=== PATIENT | female | born 1990 ===

== ENCOUNTER 2019-02-24 14:08 | Emergency (ER) | payer OTHER ==
[~2019-02-24] VITALS: Ht 157.5 cm; Wt 61.2 kg
[~2019-02-24 14:08] MED LIST: KAITLIB FE CHE1 EACH
== END 2019-02-24 20:40 | disposition home or self-care (01) ==
LOC: ER 14:08
DX: M54.5 Low back pain (principal)

== ENCOUNTER 2019-07-19 08:41 | Emergency (ER) | payer OTHER ==
[~2019-07-19] VITALS: Ht 157.5 cm; Wt 63.5 kg
== END 2019-07-19 12:46 | disposition home or self-care (01) ==
LOC: ER 08:41
DX: S90.121A Contusion of right lesser toe(s) without damage to nail, initial encounter (principal); W22.8XXA Striking against or struck by other objects, initial encounter; Y93.89 Activity, other specified; Y92.89 Other specified places as the place of occurrence of the external cause; Y99.8 Other external cause status